=== PATIENT | female | born 1955 | race Caucasian/White ===

== ENCOUNTER 2023-07-19 12:34 | Observation (INO) ==
--- NOTE | 2023-07-19 12:46 | ED Triage Note ---
Date of Service July 19, 2023 Provider in Triage Author: Valentina Eldridge History of Present Illness This patient was briefly evaluated while in triage. An abbreviated physical exam was performed. This patient is a 68-year-old Female who presents to the ED for evaluation of illness x 12 weeks, with flu, tonsillitis, lyme disease. Pt states at [facility] wednesday and states they performed tests. Pt states legs hurt, can't walk, feels dizzy. [facility] said to come here because they don't know what is wrong with her. Physical Exam CONSTITUTIONAL: in no acute pain or distress, resting comfortably SKIN: pink, warm, dry CARDIAC: regular rate and rhythm RESPIRATORY: in no respiratory distress, lungs clear to auscultation ABDOMEN: no TTP MSK: decreased strength throughout NEURO: no neuro deficits, alert and oriented x 3 Initial orders for labs and / or imaging were placed and patient was placed in the waiting area until a bed is available. Please see further documentation for the full ED course.
--- NOTE | 2023-07-19 13:30 | XRay Report ---
SINGLE VIEW CHEST CLINICAL HISTORY: Generalized weakness. FINDINGS: An AP, portable, upright chest radiograph is obtained. No prior studies are available for c omparison at the time of dictation. A 2-lead cardiac pacemaker is in place. The cardiomediastinal mireya houette is top normal for projection noting atherosclerotic calcification of the thoracic aorta. The pulmonary vasculature is nondistended congested. Nonspecific interstitial thickening likely chronic. There is bibasilar scarring/atelectasis. The lungs and pleural spaces are otherwise clear. No pneumot horax is seen. The skeletal structures are osteopenic. The bony thorax is grossly intact. Arthritic c hange is noted in the shoulders. Cholecystectomy clips are seen in the right upper quadrant. IMPRESSION: No active disease in the chest. ACT 112: Negative or not required by law. Electronically signed by: Moy Saldivar M.D. 07/19/2023 1:29 PM
[2023-07-19 13:45] LABS: Basophils # (auto) 0.03 K/uL (0.00-0.20); Basophils % (auto) 0.4 %; Eosinophils # (auto) 0.11 K/uL (0.00-0.50); Eosinophils % (auto) 1.5 %; Hematocrit (blood only) 35.6 % (37.0-47.0); Hemoglobin 11.2 g/dl (12.0-16.0); Immature Granulocytes # (auto) 0.03 K/uL (0.01-0.20); Immature Granulocytes % (auto) 0.4 %; Lymphocytes # (auto) 1.32 K/uL (1.20-3.40); Lymphocytes % (auto) 17.9 %; Mean Corpuscular Hemoglobin 27.7 pg (25.0-34.0); Mean Corpuscular Hgb Conc 31.5 g/dL (32.0-36.0); Mean Corpuscular Volume 88.1 fL (80.0-100.0); Mean Platelet Volume 9.2 fL (9.4-12.4); Monocytes # (auto) 0.29 K/uL (0.11-0.59); Monocytes % (auto) 3.9 %; Neutrophils # (auto) 5.61 K/uL (1.40-6.50); Neutrophils % (auto) 75.9 %; Platelet Count 441 K/uL (130-400); RDW Coefficient of Variation 14.1 % (11.5-14.5); RDW Standard Deviation 45.1 fL (36.4-46.3); Red Blood Count 4.04 M/uL (4.20-5.40); White Blood Count 7.39 K/ul (4.8-10.8)
[2023-07-19] MEDS ORDERED: SODIUM CHLORIDE 0.9% 1,000 ML IV ONE (13:51)
[2023-07-19 13:57] LABS: Alanine Aminotransferase 27 U/L (7-52); Albumin Globulin Ratio 0.7 (0.9-2); Albumin Level 3.1 gm/dl (3.4-5.0); Alkaline Phosphatase 98 U/L (34-104); Anion Gap 10 (3-11); Aspartate Aminotransferase 27 U/L (13-39); BUN Creatinine Ratio 14.4 (10-20); Bilirubin,Total 0.5 mg/dl (0.2-1.0); Blood Urea Nitrogen 18 mg/dl (6-23); Calcium 9.1 mg/dl (8.6-10.3); Carbon Dioxide 24 mmol/L (21-32); Chloride 101 mmol/L (98-107); Est GFR (African American) 51.5 ml/min; Est GFR (Non-African American) 44.5 ml/min; Globulin 4.5 gm/dl (2.5-4.0); Glucose 226 mg/dl (70-99(Fasting)); Potassium 3.8 mmol/L (3.5-5.1); Sodium 135 mmol/L (136-145); Total Protein 7.6 gm/dl (6.0-8.3)
[2023-07-19 14:50] LABS: Lyme Ab IgM w/WB Rflx Negative (Negative)
--- NOTE | 2023-07-19 15:16 | Emergency Department Note ---
Impression & Plan Unable to care for self, (HFpEF) heart failure with preserved ejection fraction, Fibromyalgia, Weakness ED Provider Note CHIEF COMPLAINT: Weakness, bilateral foot pain, right elbow pain HISTORY OF PRESENT ILLNESS: This 68-year-old female patient with past medical history of dysuria, heart failure, paroxysmal atrial fibrillation, fibromyalgia, anxiety, rheumatoid arthritis and coronary artery disease with stent in place presents to the emergency department with complaints of generalized weakness. The patient states she is not able to walk as she has no strength in her legs. She complains of bilateral foot pain. Family member states they have been in and out of emergency departments over the last several weeks to no benefit. She was found to have some sort of swelling or mass on the neck on CAT scan and was advised to have an MRI and follow-up. Patient's daughter states they called PCP after getting frustrated with frequent ER visits to multiple facilities and they were advised to come to the emergency department at [facility]. Patient denies chest pain, shortness of breath, vomiting or diarrhea. She has not had any recent fevers. REVIEW OF SYSTEMS: A review of systems was performed with positives and pertinent negatives listed in the history of present illness. 10 systems were reviewed and are otherwise negative. ALLERGIES: see below MEDICATIONS: see below PMH: see below SOCIAL HISTORY: see below DDx: Infection, dehydration, metabolic abnormality, hypo/hyperglycemia, electrolyte disturbance, anemia, hypoxia, cardiac sources, intracerebral event, toxicologic, neurologic, as well as other pathologies. PHYSICAL EXAM: Vital signs reviewed. General: Somewhat chronically ill-appearing 68-year-old female, no significant distress. HEENT: No scleral icterus, PERRLA, neck supple. Moist mucous membranes, edentulous Cardiovascular: Regular rate and rhythm, no extra sounds. Pulmonary: Clear to auscultation bilaterally, normal work of breathing. Abdomen: Soft, nontender, nondistended, positive bowel sounds. Musculoskeletal: Atraumatic, minimal peripheral edema. Peripheral joint deformities consistent with arthritis. Neurologic: Patient awake alert and oriented x 3, speech is clear Skin: Warm, dry, no rash EMERGENCY DEPARTMENT COURSE/MDM: This patient was evaluated and appeared to be in no significant distress. IV access was obtained and laboratory work was drawn. Patient was placed on the barrel burner and noted to be in normal sinus rhythm. Records were requested from the outside hospital including ED visits, laboratory work and imaging studies at [facility]. Laboratory work was obtained and is fairly reassuring. Patient's UA is contaminated and will be sent for culture. Does not seem likely that the patient has UTI based on the results. RSV, influenza and COVID swabs are negative. Given that the patient has not been out of bed and is difficult for family to care for at home, consultation with the case specialist was placed in hopes of transitioning the patient to inpatient rehab from the emergency department. According to the case specialist, the patient's insurance would dictate PT/OT evaluations prior to transfer. Case was discussed with the hospitalist service who is agreed to evaluate the patient for admission and further management. MONITORING: An order for cardiac monitoring was placed and the patient is noted to be in a normal sinus rhythm at 84 beats per minute. RADIOLOGY: Chest x-ray to my interpretation reveals no evidence of focal lung consolidation or failure. Otherwise defer to radiology's over read. Right elbow x-ray to my interpretation reveals no acute fracture or dislocation. EKG: To my interpretation reveals a normal sinus rhythm at [address] segments. No PVC, no PAC. QTc of 440, no previous for comparison. Admission DISPOSITION: Admission Past Med/Surg History Medical History Anxiety Fibromyalgia Paroxysmal A-fib (HFpEF) heart failure with preserved ejection fraction Rheumatoid arthritis Pacemaker Surgical History H/O: hysterectomy H/O heart artery stent Hx of cholecystectomy History of tubal ligation Family History Mother Cancer kidney and stomach Sister Diabetes Social History Smoking Status: Former smoker Tobacco Cessation Education Requested by Patient: No Hx Alcohol Use: No Hx Substance Use: No Preferred Language: Swedish Communication Ability: Effective Sanitary Plumber Required: No Beliefs That Will Affect Care: None and Shinto Shinto Beliefs: Sikhism marital status: Current Living Situation: Spouse and Family Feels Safe at Home: Yes Safety Concerns: Feels Safe At This Time Assistive Devices: None Assistive Devices Comment: Cane/Walker Allergies Allergies Allergy/AdvReac Type Severity Reaction Status Date / Time amoxicillin Allergy Severe Anaphylaxis Verified 07/19/23 16:40 morphine Allergy Intermediate ITCHY ALL Verified 07/19/23 16:40 OVER Home Meds Home Medications Medication Instructions Recorded Confirmed apixaban 5 mg tablet (Eliquis) 5 mg PO BID 07/19/23 07/19/23 atorvastatin 40 mg tablet 40 mg PO DAILY 07/19/23 07/19/23 diltiazem HCl 240 mg capsule,24 240 mg PO QAM 07/19/23 07/19/23 hr,extended release furosemide 20 mg tablet 20 mg PO DAILY 07/19/23 07/19/23 loratadine 10 mg tablet (Claritin) 10 mg PO DAILY 07/19/23 07/19/23 lorazepam 0.5 mg tablet 0.5 mg PO BID PRN Anxiety 07/19/23 07/19/23 metoprolol succinate 100 mg 100 mg PO HS 07/19/23 07/19/23 tablet,extended release 24 hr montelukast 10 mg tablet 10 mg PO DAILY 07/19/23 07/19/23 (Singulair) nitroglycerin 0.4 mg sublingual 0.4 mg sublingual DIRECTED PRN 07/19/23 07/19/23 tablet (Nitrostat) Chest Pain oxycodone-acetaminophen 5 mg-325 1 tab PO BID PRN Pain 07/19/23 07/19/23 mg tablet pantoprazole 40 mg tablet,delayed 40 mg PO BID 07/19/23 07/19/23 release potassium chloride 20 mEq 20 meq PO DAILY 07/19/23 07/19/23 tablet,extended release(part/cryst) Previous Rx's Medication Instructions Recorded prednisone 10 mg tablet See Taper PO DAILY #36 tabs 07/21/23 prednisone 5 mg tablet 5 mg PO DAILY #4 tabs 07/21/23 Results & Data (ED) Vital Signs Vital Signs - 24 hr 07/19/23 12:44 07/19/23 14:57 07/19/23 14:57 Temperature 36.5 C Temperature Source Temporal Artery Scan Pulse Rate 83 83 Pulse Rate [Right Finger] 83 Pulse Rhythm Regular Respiratory Rate 20 20 20 Respiratory Effort / Characteristics Non-Labored Spontaneous Respiratory Depth Normal Blood Pressure 128/84 Blood Pressure [Right Arm] 115/67 Blood Pressure Mean 98 Blood Pressure Mean [Right Arm] 83 Pulse Oximetry 100 99 100 Oxygen Delivery Method Room Air Room Air Sepsis Recent Fever Within 48 Hours No Sepsis New/Unexplained Change in Mental Status No Sepsis Action Taken by Nursing No Action Required 07/19/23 14:57 Temperature Temperature Source Pulse Rate 84 Pulse Rate [Right Finger] Pulse Rhythm Respiratory Rate Respiratory Effort / Characteristics Respiratory Depth Blood Pressure Blood Pressure [Right Arm] Blood Pressure Mean Blood Pressure Mean [Right Arm] Pulse Oximetry Oxygen Delivery Method Sepsis Recent Fever Within 48 Hours Sepsis New/Unexplained Change in Mental Status Sepsis Action Taken by Penitentiary Medications Current Medication List: was personally reviewed by me Laboratory Data Attestation: I reviewed the patient's lab results. 07/21/23 07:11 07/21/23 07:11 Lab Results 07/19/23 07/19/23 07/19/23 Range/Units 13:05 15:05 15:41 WBC 7.39 (4.8-10.8) K/ul RBC 4.04 L (4.20-5.40) M/uL Hgb 11.2 L (12.0-16.0) g/dl Hct 35.6 L (37.0-47.0) % MCV 88.1 (80.0-100.0) fL MCH 27.7 (25.0-34.0) pg MCHC 31.5 L (32.0-36.0) g/dL RDW Std Deviation 45.1 (36.4-46.3) fL RDW Coeff of Keon 14.1 (11.5-14.5) % Plt Count 441 H (130-400) K/uL MPV 9.2 L (9.4-12.4) fL Immature Gran % (Auto) 0.4 % Neut % (Auto) 75.9 % Lymph % (Auto) 17.9 % Ray % (Auto) 3.9 % Eos % (Auto) 1.5 % Baso % (Auto) 0.4 % Neut # (Auto) 5.61 (1.40-6.50) K/uL Lymph # (Auto) 1.32 (1.20-3.40) K/uL Ray # (Auto) 0.29 (0.11-0.59) K/uL Eos # (Auto) 0.11 (0.00-0.50) K/uL Baso # (Auto) 0.03 (0.00-0.20) K/uL Immature Gran # (Auto) 0.03 (0.01-0.20) K/uL ESR 105 H (0-30) mm/hr Sodium 135 L (136-145) mmol/L Potassium 3.8 (3.5-5.1) mmol/L Chloride 101 (98-107) mmol/L Carbon Dioxide 24 (21-32) mmol/L Anion Gap 10 (3-11) BUN 18 (6-23) mg/dl Creatinine 1.25 H (0.6-1.2) mg/dl Est Cr Clr Drug Dosing Not Reportable Est GFR ( Amer) 51.5 ml/min Est GFR (Non-Af Amer) 44.5 ml/min BUN/Creatinine Ratio 14.4 (10-20) Glucose 226 H (70-99(Fasting)) mg/dl Lactate 2.9 H* 1.6 (0.4-2.0) mmol/L Calcium 9.1 (8.6-10.3) mg/dl Magnesium 2.0 (1.7-2.4) mg/dl Total Bilirubin 0.5 (0.2-1.0) mg/dl AST 27 (13-39) U/L ALT 27 (7-52) U/L Alkaline Phosphatase 98 (34-104) U/L Total Creatine Kinase 14 L (26-192) U/L Troponin I High Sens 12.2 (0-14) pg/ml C-Reactive Protein 13.73 H (0-0.5) mg/dl Total Protein 7.6 (6.0-8.3) gm/dl Albumin 3.1 L (3.4-5.0) gm/dl Globulin 4.5 H (2.5-4.0) gm/dl Albumin/Globulin Ratio 0.7 L (0.9-2) Lyme Disease IgG Ab Negative (Negative) Lyme Disease IgM Ab Negative (Negative) SARS-CoV-2 (PCR) NEGATIVE (Negative) Influenza Type A (PCR) Negative (Neg) Influenza Type B (PCR) Negative (Neg) RSV (RT-PCR) Negative (Neg) Administered Medications Discontinued Medications Apixaban (Apixaban 5 Mg Tablet) 5 mg PO BID YURI Stop: 08/18/23 20:59 Last Admin: 07/21/23 09:32 Dose: 5 mg Documented By: Admin: 07/20/23 21:00 Dose: 5 mg Documented By: LEIGH ANN Admin: 07/20/23 08:59 Dose: 5 mg Documented By: Admin: 07/19/23 22:27 Dose: 5 mg Documented By: CRUZ Atorvastatin Calcium (Atorvastatin 40 Mg Tab) 40 mg PO DAILY [facility] Stop: 08/19/23 08:59 Last Admin: 07/21/23 09:32 Dose: 40 mg Documented By: Admin: 07/20/23 08:59 Dose: 40 mg Documented By: KENN Diclofenac Sodium (Diclofenac Sod 1% Gel 100 Gm Tube) 2 gm EXT Q6 YURI; Protocol Stop: 08/20/23 02:59 Last Admin: 07/21/23 12:38 Dose: 2 gm Documented By: Admin: 07/21/23 05:24 Dose: Not Given Documented By: LEIGH ANN Diltiazem HCl (Diltiazem Hcl 240 Mg Capcr) 240 mg PO QAM YURI Stop: 08/19/23 08:59 Last Admin: 07/21/23 09:32 Dose: 240 mg Documented By: Admin: 07/20/23 08:59 Dose: 240 mg Documented By: KENN Furosemide (Furosemide 20 Mg Tab) 20 mg PO DAILY [facility] Stop: 08/19/23 08:59 Last Admin: 07/21/23 09:32 Dose: 20 mg Documented By: Admin: 07/20/23 08:59 Dose: 20 mg Documented By: KENN Gadobutrol (Gadobutrol 65ml Vial) 6.5 ml IV ONCE ONE Stop: 07/20/23 13:50 Last Admin: 07/20/23 13:39 Dose: 6.5 ml Documented By: BETZAIDA Sodium Chloride (Nss) 1,000 mls @ 999 mls/hr IV .Q1H1M ONE Stop: 07/19/23 14:51 Last Infusion: 07/19/23 17:54 Dose: Infused Documented By: Admin: 07/19/23 14:56 Dose: 999 mls/hr Documented By: HARMONY Ceftriaxone Sodium 2,000 mg/ (Dextrose) 50 mls @ 100 mls/hr IV Q24H [facility]; Protocol Stop: 07/24/23 18:59 Last Infusion: 07/20/23 19:00 Dose: Infused Documented By: Admin: 07/20/23 18:14 Dose: 100 mls/hr Documented By: Infusion: 07/19/23 20:16 Dose: Infused Documented By: Admin: 07/19/23 18:51 Dose: 100 mls/hr Documented By: DULCE Methylprednisolone 40 mg/ (Syringe) 0.64 mls @ 1.5 mls/min IV NOW STA Stop: 07/20/23 19:22 Last Admin: 07/20/23 21:05 Dose: 1.5 mls/min Documented By: LEIGH ANN Insulin Aspart (Insulin Aspart Per Unit Charge) 0 units SC ACHS YURI Stop: 08/18/23 20:59 Last Admin: 07/19/23 22:31 Dose: Not Given Documented By: CRUZ Co-signed By: SRL Insulin Glargine (Lantus Per Unit Charge) 8 units SQ BID YURI Stop: 08/18/23 20:59 Last Admin: 07/19/23 23:01 Dose: Not Given Documented By: CRUZ Loratadine (Loratadine 10 Mg Tab) 10 mg PO DAILY YURI Stop: 08/19/23 08:59 Last Admin: 07/21/23 09:32 Dose: 10 mg Documented By: Admin: 07/20/23 08:59 Dose: 10 mg Documented By: KENN Lorazepam (Lorazepam 0.5 Mg Tab) 0.5 mg PO BID PRN PRN Reason: Anxiety Stop: 08/18/23 18:43 Last Admin: 07/20/23 03:53 Dose: 0.5 mg Documented By: FROY Metoprolol Succinate (Metoprolol Succ 50mg Ext Rel Tab) 100 mg PO HS [facility] Stop: 08/18/23 20:59 Last Admin: 07/20/23 21:00 Dose: 100 mg Documented By: LEIGH ANN Admin: 07/19/23 22:28 Dose: 100 mg Documented By: CRUZ Montelukast Sodium (Montelukast Sodium 10 Mg Tablet) 10 mg PO DAILY YURI Stop: 08/19/23 08:59 Last Admin: 07/21/23 09:32 Dose: 10 mg Documented By: Admin: 07/20/23 08:59 Dose: 10 mg Documented By: KENN Oxycodone HCl (Oxycodone Hcl Ir 5 Mg Tab (Immediate Release)) 5 mg PO BID PRN PRN Reason: Pain Stop: 08/02/23 18:43 Last Admin: 07/20/23 20:59 Dose: 5 mg Documented By: LEIGH ANN Pantoprazole Sodium (Pantoprazole 40 Mg Tab) 40 mg PO BID YURI Stop: 08/18/23 20:59 Last Admin: 07/21/23 09:33 Dose: 40 mg Documented By: Admin: 07/20/23 21:01 Dose: 40 mg Documented By: LEIGH ANN Admin: 07/20/23 08:59 Dose: 40 mg Documented By: Admin: 07/19/23 22:28 Dose: 40 mg Documented By: CRUZ Potassium Chloride (Potassium Chloride Crtab 20 Meq Tabcr) 20 meq PO DAILY YURI Stop: 08/19/23 08:59 Last Admin: 07/21/23 09:33 Dose: 20 meq Documented By: Admin: 07/20/23 08:59 Dose: 20 meq Documented By: KENN Prednisone (Prednisone 20 Mg Tab) 40 mg PO NOW STA Stop: 07/21/23 13:55 Last Admin: 07/21/23 14:22 Dose: 40 mg Documented By: LELA Imaging Data Radiologist's Impression: Chest X-Ray 07/19/23 12:47 SINGLE VIEW CHEST CLINICAL HISTORY: Generalized weakness. FINDINGS: An AP, portable, upright chest radiograph is obtained. No prior studies are available for comparison at the time of dictation. A 2-lead cardiac pacemaker is in place. The cardiomediastinal silhouette is top normal for projection noting atherosclerotic calcification of the thoracic aorta. The pulmonary vasculature is nondistended congested. Nonspecific interstitial thickening likely chronic. There is bibasilar scarring/atelectasis. The lungs and pleural spaces are otherwise clear. No pneumothorax is seen. The skeletal structures are osteopenic. The bony thorax is grossly intact. Arthritic change is noted in the shoulders. Cholecystectomy clips are seen in the right upper quadrant. IMPRESSION: No active disease in the chest. ACT 112: Negative or not required by law. Electronically signed by: Moy Saldivar M.D. 07/19/2023 1:29 PM Discharge Plan Visit Data Chief Complaint: Illness Stated Complaint: DEHYDRATION, EDEMA TO HANDS/LEGS, SICK/LYMDISEASE ED Provider: Krista Awan Discharge Problem: Unable to care for self, (HFpEF) heart failure with preserved ejection fraction, Fibromyalgia, Weakness Patient Disposition: Admitted As Inpatient Discharge Instructions Interventions: ED Discharge Assessment Last Done: 07/20/23 14:55
[2023-07-19 15:26] LABS: Troponin I High Sensitivity 12.2 pg/ml (0-14)
--- NOTE | 2023-07-19 15:39 | XRay Report ---
XR elbow RT min 3V routine CLINICAL HISTORY: Right elbow pain. COMPARISON: None FINDINGS: Alignment of the right elbow is anatomic. No acute fracture is identified. There is no igor dence for a joint effusion. Tiny ossicle along the lateral condyle is chronic. There is ulnotrochlear articulation osteophytosis. IMPRESSION: 1. No fractures within the right elbow. No evidence for a right elbow joint effusion. 2. Mild ulnotrochlear osteoarthritis. ACT 112: Negative or not required by law. Electronically signed by: Gume Baker M.D. 07/19/2023 3:38 PM
--- NOTE | 2023-07-19 16:04 | History & Physical Report ---
Date of Service July 19, 2023 Assessment & Plan (1) Weakness: Plan: Polyarthralgia, myalgia,weakness, ambulatory dysfunction Recently worsened since flu and tonsillitis 10 weeks ago. Has not improved on a 3-day course of steroids prescribed by [facility] several ago weeks ago Has a history of rheumatoid arthritis and joints tend to get less painful with use consistent with this. Multimodal pain control ordered, started to defer pending completion of additional workup CRP, ESR, CK ordered; no baseline available for comparison at time of admission NSAIDs deferred due to borderline elevated creatinine. Tylenol, Voltaren ordered. Home oxycodone continued, avoid dose escalation of narcotics. Meloxicam home dose temporarily held held -Lyme serology pending - Also endorses dysuria. UA contaminated versus infected appearing, given symptoms we will treat with Rocephin. PT/OT (2) Neck pain: Plan: Left neck pain Patient reports she has had swelling and pain at her left neck. She feels that she has also had some difficulty swallowing, although did eat lunch today. Notes that she has had 15 pounds of weight gain over 1 month, some of that she attributes to diet and not being very hungry, in addition to having some trouble swallowing. Denies aspiration events -Left neck with small area of fimness, minimall swelling, and TTP. Marked with surgical pen. Trachea midline, no wheezing/stridor or signs o [place] compromise on admit CT soft tissue neck with contrast reviewed from [place] performed 07/16. She reports that this was present then and has not changed since then. This shows prominence of her right lateral oropharyngeal wall, nonspecific cervical lymphadenopathy, normal appearance of the infrahyoid deep neck spaces, normal appearance of the larynx/supraglottic space/glottic space/infraglottic space, normal appearance of the sublingual submandibular and parotid salivary glands, and unremarkable oropharynx. The oropharyngeal wall thickening is opposite to her actual pain and erythema. She was recommended for follow-up MRI to rule out malignancy [place]. Images requested to push for in-house review Soft tissue MRI of the neck with contrast ordered. This cannot be performed until 07/20, pacemaker will need to be turned off for this. Pacemaker ID card is copied into H&P PE section. .No leukocytosis, no signs of ongoing bacterial infection. Will trend fever curve (3) Dysuria: Plan: Rocephin. Pt does not appear septic continued, no leukocytosis and hemodynamically stable. Did have an elevated lactate which rapidly normalized w/ both UTI and poor p.o. intake however this has normalized following initial crystalloid resuscitation. (4) (HFpEF) heart failure with preserved ejection fraction: Plan: Hx CAD with history of PCI Aspirin/Eliquis/statin/bb/ccb continued - no chest pain/chest pressure/syncope With history of diastolic failure reportedly normal EF, pending echo for review from [place] Near euvolemic on admission assessment, not hypoxic, lungs are clear are clear Lasix 20 daily continued (5) Paroxysmal A-fib: Plan: A-fib, paroxysmal, anticoagulated - Diltiazem to 40 mg daily Continue metoprolol Continue Eliquis (6) Fibromyalgia: Plan: Fibromyalgia Home SSRI, pain control continued (7) Anxiety: Plan: Anxiety Home lorazepam continued Plan Patient prophylaxis: Anticoagulated Disposition: Medical/surgical CODE STATUS: DNR/DNI Diet: Heart healthy, DM2 History of Present Illness Primary Care Provider: Gerald Gerald Arguelles reports she had Flu A and Flu B 10 weeks ago and has been progressively weaker since then. Thinks she got steroids for 3 days and family doctor gave her an antibiotic x2 course for failure to improve and ?superimposed tonsillitis/pharyngitis, did not take these initially for several weeks. After she started tonsillitis resolved weeks ago, but still feels very tired almost all the time these sense No wheezing, no shortness of breath Legs have been sore since having the floor. 'Legs hurt so bad I just can't walk'. Hands also ache. Feels more tremulous lately, cold lately.. Notes her hands and wrist normally ache due to rheumatoid arthritis but feels worse than normal .. She does note they loosen up a little bit with effort, but they have been more painful and are now limiting her ability to function. Denies fevers, no chills/night sweats but does get intermittently during the day. Wednesday went to [facility] to have the swelling in her legs and arms looked at, got lasix, and was sent home. Lasix improved the swelling, and could walk yesterday but swelling returned today and hurt to walk again so she returned for placement, evaluation of her legs, neck, and placement/PT. Has a history of rheumatoid arthritis and fibromyalgia. She notes that her legs feel sore but are not tender to the touch, although her hips/wrists tend to be sore bilaterally. Her pain is worse when trying to stand and she feels this in both the thighs and bilateral lower extremities. Has a history of a pacemaker. History of [place] and PCI x2 stents. Stents were performed at [facility]. Reports [place] said she had heart failure and edema, pt is not aware of if this is true. She was told she had diastolic CHF. Patient reports she had a CT with contrast of her neck at [place], and was referred to have an outpatient MRI for potential cancer. She has not had follow-up for this. She continues to have left neck tenderness and pain with redness and swelling CT-Neck pending, pt reports she is pending an outpatient MRI but has not followed up for this. Pacemaker has to be turned off. Pacemaker was placed at [facility] [place]. Denies chest pain, chest pressure. No syncope or presyncope. Record REview: [facility] Notes/Labs/Imaging Reviewed from 07/16/23 Assessment: Patient presented with tonsillitis had not take meds for 8-10 weeks and continue to have a sore throat. Has a history of A-fib on Eliquis and diltiazem, hypertension, RA, hyperlipidemia, chronic pain, fibromyalgia Had difficulty swallowing intermittently with 15 pounds weight loss in the preceding 4 to 6 weeks Leukocytosis, elevated proBNP without pulmonary edema. D-dimer is elevated patient obtained a CTA of the chest. This showed no evidence of PE, mild mural thickening of the esophagus with bilateral upper groundglass nodules which patient reports are chronic and not new. CT of the neck showed prominence of the right lateral oropharyngeal wall. Endoscopy/outpatient MRI follow-up with PCP was pending. Patient had not been compliant with Lasix at that time and was discharged to follow-up with PCP and with Lasix Patient reports she is compliant with her Eliquis [facility] internal medicine 07/16/[address] soft tissue neck with contrast: Prominence of right lateral oropharyngeal wall, subcentimeters nonspecific cervical lymph nodes. MRI with contrast recommended to eval for malignancy Plan [place] internal medicine note reviewed Medical history includes: Osteoarthritis of the right shoulder, supraspinatus tear, influenza, pharyngitis, bronchitis, excessive daytime sleepiness, chronic headaches, rheumatoid arthritis, fibromyalgia, GERD, A-fib paroxysmal on anticoagulation, cardiac pacemaker status, hyperlipidemia Medications: Lorazepam 0.5 mg daily as needed, oxycodoneacetaminophen 5-325 mg 1 tablet twice a day as needed for pain, Protonix 40 daily, montelukast 10 mg daily, Zofran 3 times daily as needed, sertraline 50 mg daily, Zyrtec 10 mg daily, diltiazem to 40 mg extended release daily, famotidine 40 mg at night, piroxicam 10 mg daily, metoprolol succinate 100 mg every night, aspirin 81 mg daily, atorvastatin 40 mg daily, Eliquis twice daily, nitroglycerin as needed. Surgical history: Cardiac cath 01/2016, cholecystectomy, hysterectomy, tubal ligation, less breast lumpectomy Family history: Diabetes in daughter, sister. Breast cancer in sister. Heart disease in father who is at age 60. Pancreatic cancer and adenoid hypertrophy and mother Social: Former smoker, quit 2014 after approximately [id number] history Allergies Allergy/AdvReac Type Severity Reaction Status Date / Time amoxicillin Allergy Severe Anaphylaxis Verified 07/19/23 16:40 morphine Allergy Intermediate ITCHY ALL Verified 07/19/23 16:40 OVER Home Medications Medication Instructions Recorded Confirmed Type apixaban 5 mg tablet (Eliquis) 5 mg PO BID 07/19/23 07/19/23 History atorvastatin 40 mg tablet 40 mg PO DAILY 07/19/23 07/19/23 History diltiazem HCl 240 mg capsule,24 240 mg PO QAM 07/19/23 07/19/23 History hr,extended release furosemide 20 mg tablet 20 mg PO DAILY 07/19/23 07/19/23 History loratadine 10 mg tablet (Claritin) 10 mg PO DAILY 07/19/23 07/19/23 History lorazepam 0.5 mg tablet 0.5 mg PO BID PRN Anxiety 07/19/23 07/19/23 History metoprolol succinate 100 mg 100 mg PO HS 07/19/23 07/19/23 History tablet,extended release 24 hr montelukast 10 mg tablet 10 mg PO DAILY 07/19/23 07/19/23 History (Singulair) nitroglycerin 0.4 mg sublingual 0.4 mg sublingual DIRECTED PRN 07/19/23 07/19/23 History tablet (Nitrostat) Chest Pain oxycodone-acetaminophen 5 mg-325 1 tab PO BID PRN Pain 07/19/23 07/19/23 History mg tablet pantoprazole 40 mg tablet,delayed 40 mg PO BID 07/19/23 07/19/23 History release potassium chloride 20 mEq 20 meq PO DAILY 07/19/23 07/19/23 History tablet,extended release(part/cryst) Past Med/Surg History Medical History (Updated 07/19/23 @ 16:56 by Denis Gutierrez MD) Anxiety Fibromyalgia Paroxysmal A-fib (HFpEF) heart failure with preserved ejection fraction Rheumatoid arthritis Pacemaker Surgical History H/O: hysterectomy H/O heart artery stent Hx of cholecystectomy History of tubal ligation Family History Mother Cancer kidney and stomach Sister Diabetes Social History Smoking Status: Never smoker Hx Alcohol Use: No Preferred Language: Mexican marital status: Feels Safe at Home: Yes Physical Exam 2 Physical Exam: General: A&Ox3. NAD. Cooperative. HEENT: Atraumatic, normocephalic. 2 left neck with area of firmness and tenderness but no erythema/warmth. Circled with surgical pen. No tracheal deviation, uvula midline, no stridor Pulm: CTAB A&P. -wheezes, -rales, -rhonchi. Symmetrical chest rise. No increased work of breathing. No respiratory distress. Cardiac: RRR, -mrg. Radial pulses intact and symmetrical. Abdominal: Nontender, nondistended, soft. BS present. Extremities: Warm, dry. No pitting edema of the lower extremities. Wrist bilaterally, hip bilaterally, ankles bilaterally mildly tender to palpation and on initial active strength movement this improves somewhat on continued strength testing. Sensation intact in hands and feet without Results & Data Results & Data Vital Signs (Past 12 Hours) Vital Signs Temp Pulse Pulse Resp BP BP Pulse Ox 07/19/23 14:57 84 07/19/23 14:57 83 20 115/67 100 07/19/23 14:57 83 20 99 07/19/23 12:44 36.5 C 83 20 128/84 100 O2 Del Method 07/19/23 14:57 07/19/23 14:57 Room Air 07/19/23 14:57 Room Air 07/19/23 12:44 PG Care Time/CCT Total # of Minutes Spent Total Time Spent with Patient: Total time spent is greater than 50% in coordination of care (as documented) at patient's floor/unit and/or counseling patient: Coding Level of Care Code 15363 INT INP/OBS CARE 3/75MIN Diagnoses Weakness R53.1 Neck pain M54.2 Dysuria R30.0 (HFpEF) heart failure with preserved ejection fraction I50.30 Paroxysmal A-fib I48.0 Fibromyalgia M79.7 Anxiety F41.9
[2023-07-19 16:21] LABS: Appearance Urine Cloudy (Clear); Bacteria Urine Automated Negative (Negative); Bilirubin Urine 1+ (Negative); Blood Urine Negative (Negative); Color Urine Orange; Epithelial Cell Urine Auto >30 /lpf (0-5); Glucose Urine UA Negative (Negative); Ketones Urine Trace (Negative); Leukocyte Esterase Urine Trace (Negative); Nitrite Urine Positive (Negative); Protein Urine Trace (Negative); Specific Gravity Urine 1.034 (1.000-1.030); Urobilinogen Urine Negative (Negative); pH Urine 5.5 (4.5-7.5)
[2023-07-19 16:36] LABS: Cast Urine Automated >30 /lpf (0-5)
[2023-07-19 16:36] LABS: Influenza A virus by PCR Negative (Neg); Influenza B virus by PCR Negative (Neg); RSV by PCR Negative (Neg); SARS CoV2 RNA(COVID-19) Ceph NEGATIVE (Negative)
[2023-07-19 16:37] LABS: Mucus Urine Present (None Prsent)
[2023-07-19 16:46] LABS: Lyme Ab IgG w/WB Rflx Negative (Negative)
[2023-07-19] MEDS ORDERED: GLUCOSE 10 TAB/TUBE PO PRN (16:53)
[2023-07-19] MEDS ORDERED: CARBOHYDRATES FOR HYPOGLYCEMIA PO PRN (16:53)
[2023-07-19] MEDS ORDERED: GLUCOSE 40% GEL 15 GM TUBE PO PRN (16:53)
[2023-07-19] MEDS ORDERED: DEXTROSE 50% 50 ML SYRINGE IV PRN (16:53)
[2023-07-19] MEDS ORDERED: GLUCAGON FOR INJ 1 MG VIAL SQ PRN (16:53)
[2023-07-19 17:21] LABS: C Reactive Protein 13.73 mg/dl (0-0.5); Creatine Kinase 14 U/L (26-192)
[2023-07-19] MEDS ORDERED: LORazepam 0.5 MG TAB PO PRN (18:44)
[2023-07-19] MEDS ORDERED: ACETAMINOPHEN 325 MG TAB PO PRN (18:44)
[2023-07-19] MEDS ORDERED: POLYETHYLENE (MIRALAX) 17 GM PACK PO PRN (18:44)
[2023-07-19] MEDS ORDERED: oxyCODONE HCL IR 5 MG TAB (IMMEDIATE RELEASE) PO PRN (18:44)
[2023-07-19] MEDS ORDERED: NITROGLYCERIN SL 0.4 MG/TAB TAB SL PRN (18:44)
[2023-07-19] MEDS: cefTRIAXone SODIUM 2,000 MG in DEXTROSE 5 % MINI-B 50 ML IV SCH (18:51)
--- NOTE | 2023-07-19 19:14 | Electrocardiogram Report ---
Test Reason : Blood Pressure : / mmHG Vent. Rate : 079 BPM Atrial Rate : 079 BPM P-R Int : 142 ms QRS Dur : 088 ms QT Int : 384 ms P-R-T Axes : 056 030 054 degrees QTc Int : 440 ms Normal sinus rhythm Cannot rule out Anterior infarct , age undetermined Abnormal ECG No previous ECGs available Confirmed by Jhonatan Ferrera ([id number]) on 07/19/2023 7:14:20 PM Referred By: Confirmed By:Jhonatan Ferrera
[2023-07-19] MEDS ORDERED: INSULIN ASPART PER UNIT CHARGE SC SCH (21:00)
[2023-07-19] MEDS ORDERED: LANTUS PER UNIT CHARGE SQ SCH (21:00)
[2023-07-19] MEDS: APIXABAN 5 MG TABLET PO SCH (22:27)
[2023-07-19] MEDS: PANTOprazole 40 MG TAB PO SCH (22:28)
[2023-07-19] MEDS: METOPROLOL SUCC 50MG EXT REL TAB PO SCH (22:28)
[2023-07-20 04:51] LABS: Basophils # (auto) 0.02 K/uL (0.00-0.20); Basophils % (auto) 0.3 %; Eosinophils # (auto) 0.14 K/uL (0.00-0.50); Eosinophils % (auto) 2.3 %; Hemoglobin 9.8 g/dl (12.0-16.0); Immature Granulocytes # (auto) 0.01 K/uL (0.01-0.20); Immature Granulocytes % (auto) 0.2 %; Lymphocytes # (auto) 1.51 K/uL (1.20-3.40); Mean Corpuscular Hemoglobin 27.5 pg (25.0-34.0); Mean Corpuscular Hgb Conc 31.6 g/dL (32.0-36.0); Mean Corpuscular Volume 87.1 fL (80.0-100.0); Mean Platelet Volume 8.9 fL (9.4-12.4); Monocytes # (auto) 0.56 K/uL (0.11-0.59); Monocytes % (auto) 9.3 %; Neutrophils % (auto) 62.9 %; Platelet Count 356 K/uL (130-400); RDW Coefficient of Variation 13.8 % (11.5-14.5); RDW Standard Deviation 44.1 fL (36.4-46.3); Red Blood Count 3.56 M/uL (4.20-5.40); White Blood Count 6.04 K/ul (4.8-10.8)
[2023-07-20 05:06] LABS: Calcium 8.8 mg/dl (8.6-10.3); Creatinine Clr Calc Pharmacy 62.3 ml/min; Est GFR (African American) 87.1 ml/min; Est GFR (Non-African American) 75.2 ml/min
[2023-07-20 07:52] LABS: Estimated Average Glucose 117 mg/dl; Hemoglobin A1C 5.7 % (4.5-5.6)
[2023-07-20] MEDS: FUROSEMIDE 20 MG TAB PO SCH (08:59)
[2023-07-20] MEDS: POTASSIUM CHLORIDE CRTAB 20 MEQ TABCR PO SCH (08:59)
[2023-07-20] MEDS: MONTELUKAST SODIUM 10 MG TABLET PO SCH (08:59)
[2023-07-20] MEDS: PANTOprazole 40 MG TAB PO SCH ×2 (08:59→21:01)
[2023-07-20] MEDS: LORATADINE 10 MG TAB PO SCH (08:59)
[2023-07-20] MEDS: dilTIAZem HCL 240 MG CAPCR PO SCH (08:59)
[2023-07-20] MEDS: ATORVASTATIN 40 MG TAB PO SCH (08:59)
[2023-07-20] MEDS: APIXABAN 5 MG TABLET PO SCH ×2 (08:59→21:00)
[2023-07-20] MEDS ORDERED: GADOBUTROL 65ML VIAL IV ONE (13:49)
--- NOTE | 2023-07-20 14:57 | Magnetic Resonance Report ---
MRI OF THE NECK WITH AND WITHOUT CONTRAST CLINICAL HISTORY: Pharyngeal thickening, weight loss. Palpable lump Evaluate for malignancy. COMPARISON STUDY: No previous studies for comparison. TECHNIQUE: Utilizing a 1.5 Juliana magnet and dedicated coil, multiplanar, multiecho imaging of the [facility] k was performed pre and postcontrast administration. Intravenous injection of 6.5 cc of Gadavist was uneventful. FINDINGS: Visualized portions of the intracranial contents are unremarkable. There is no evidence for sinusitis. No significant mastoid fluid is present. No foci of suspicious marrow replacement are pre sent within the cervical spine. The parotid and submandibular glands are unremarkable. The epiglottis is normal. No pathologically enlarged cervical lymph nodes are present. There is a prominent left le francia 2 node on image 22 of 31. This measures 0.8 x 0.7 cm. This is probably benign. A marker was place d in the skin at site of palpable lump. No corresponding mass or enlarged lymph node is present. No f luid collection within the neck is present. There is no prevertebral edema. No mucosal lesion is iden tified although exam is mildly compromised by motion artifact. IMPRESSION: 1. No significant abnormality within the neck by MRI. 2. Prominent left level 2 lymph node which is likely benign. A follow-up CT in 6 months to ensure sta bility is recommended. No pathologically enlarged lymph nodes. 3. No abnormality to correspond to the palpable lump within the left neck. 4. No mucosal lesion identified by MRI although exam mildly compromised by motion artifact. ACT 112: Negative or not required by law. Electronically signed by: Gume Baker M.D. 07/20/2023 2:55 PM
--- NOTE | 2023-07-20 16:01 | Hospitalist Progress Note ---
Date of Service July 20, 2023 Assessment & Plan (1) Weakness: (2) Dysuria: (3) Neck pain: (4) Urinary hesitancy: (5) Gross hematuria: (6) Rheumatoid arthritis: (7) Paroxysmal A-fib: (8) Presence of stent in coronary artery in patient with coronary artery disease: (9) (HFpEF) heart failure with preserved ejection fraction: (10) Fibromyalgia: (11) Anxiety: Plan Kindra is a 68 y/o w/ a h/o RA, Fibromyalgia, Paroxysmal AF (s/p pacemaker raquel cement), HFpEF, Urinary Hesitancy, Gross Hematuria, Dysuria a recent h/o flu w/ tonsillitis (11 weeks ago), 1 year h/o L-sided neck mass, who presents for generalized weakness, myalgias/polyarthralgias w/ associated ambulatory dysfunction following her illness 11 weeks ago. Weakness * known h/o RA * Polyarthralgia, myalgia, ambulatory dysfunction * Worse in the evening * ESR 105, CRP 13.73 * Lyme serology (-) * Has worsened since flu 11 wks ago * Did not improve on 3-day course of steroids at [facility] several weeks ago * H/o RA that joint usage tends to ameliorate * NSAIDs deferred due to elevated creatinine * Continue on Tylenol & Voltaren PRN * Continue on home dose oxycodone * Consult PT/OT * Refer to rheumatology for evaluation (pending family med referral) UTI Sx * no bacteria present in her contaminated-appearing UA * No fever, leukocytosis, no Sxs of acute infection * Continue IV Ceftriaxone 2,000mg IV due to current Sx to cover possible infection Neck Pain * No leukocytosis, fever, or other Sxs of acute infection * Recent h/o difficulty swallowing * Upper GI balloon dilation performed 3-4 months ago * No wheezing or stridor * MRI shows no likely malignant process Rheumatoid Arthritis * known h/o RA * significant MCP/MTP swelling this hospitalization consistent w/ RA flare * has been prescribed Montelukast, Oxycodone (5 years) * refer to Rheumatology * NSAIDs deferred due to elevated creatinine * Continue on Tylenol & Voltaren PRN Paroxysmal Afib * Diltiazem to 40mg QD * Continue Metoprolol * Continue Eliquis H/o CAD w/ h/o PCI * Aspirin/Eliquis/statin/bb/ccb continued * No chest pain/pressure,/syncope HFpEF * Euvolemic,not hypoxic, lungs ar CTAB * Continue Lasix 20mg QD Fibromyalgia * Continue home SSRI, pain control Anxiety * Home Lorazepam continued Patient prophylaxis: Anticoagulated Disposition: Medical/surgical CODE STATUS: DNR/DNI Diet: Heart healthy, DM2 Admission and Anticipated Discharge Date Admission Date: July 19, 2023 Supervising Physician Co-Signing Physician Notes Medical Student Supervision Note: I was personally present during medical student patient encounter and independently interviewed and examined the patient and verified the lind history and physical, reviewed labs and image studies, discussed the case with Richard Bhakta and agree with the findings and care plan. h/o flu 8 wks ago followed by fatigue, generalized weakness, neck/back/hand joint pain and difficulty ambulation reports h/o RA and remote h/o being on methotrexate which she stopped worrying about it affecting the kidney. vitals noted. comfortable in bed. right wrist and MCP joints with generalized swelling. neck soft, no masses noted. heart - RRR; lungs - CTA. Generalized weakness and joint pain - with h/o being diagnosed with rheumatologic ds -I consulted rheum. spoke to Dr. López and reviewed his recommendations. Will put all the orders for his recommendation and provide dose of steroid. Neck exam and imaging - no masses noted. Dysuria - await urine culture. continue ceftriaxone. ambulatory dysfunction - will get PT/OT eval continue other home meds. Wendi Arguelles is a 68 y/o w/ a h/o RA Anxiety, Fibromyalgia, Paroxysmal AF (s/p pacemaker placement), HFpEF, Urinary Hesitancy, Gross Hematuria, Dysuria a recent h/o flu w/ tonsillitis (11 weeks ago), 1 year h/o L-sided neck mass, who presents for generalized weakness, myalgias/polyarthralgias w/ associated ambulatory dysfunction following her illness 11 weeks ago. No new overnight events. Her condition this AM and early PM is unchanged, she continues to feel her aches and pains that are a new baseline for her since having the flu 11 weeks ago. She continues w/ R>L hand swelling, pain, & weakness. She currently reports no significant difficulty eating or drinking, is eating and drinking well. She's able to sit up in bed by herself with some effort. Review of Systems Review of Systems: ROS negative excepting HPI Physical Exam Physical Exam: GEN: AAO x4, Weak-Appearing, NAD HEENT: NC/AT, PERRLA, EOMI, Good Conjugate Gaze, Nares Patent, MMM, normal conjunctiva, normal dentition. NECK: Supple, No LAD, No Thyromegaly, 7x10cm irregular area of firm induration, mostly non-tender, Limited ROM to the Left RESP: CTAB, No WRR, Normal Respiratory Effort CV: RRR, Normal S1/S2, No M/R/G ABD: Soft, Non-Tender, Non-Distended, No Hepatosplenomegaly, No masses EXT: Swelling/erythema of wrist joints (R>L), MCP joints, & MTP joints, decreased ROM of R arm at elbow, Strength 3/5 b/l, Sensation Intact, Cap Refill <2s, 2+ b/l, No cyanosis NEURO: CN II-XII Intact, Reflexes 2+ b/l & Symmetric (biceps, triceps, patellar) (-) Babinski sign, Sensation intact to light touch DERM: Skin Intact, No Rashes, No Lesions Results & Data Results & Data Vital Signs (Past 12 Hours) Vital Signs Pulse Pulse Resp BP Pulse Ox O2 Del Method 07/20/23 13:00 80 20 132/77 97 Room Air 07/20/23 09:02 82 20 138/80 98 Room Air 07/20/23 07:04 79 07/20/23 06:00 77 21 07/20/23 05:00 78 20 07/20/23 04:00 82 24 Laboratory Results 07/20/23 07/20/23 07/20/23 12:06 07:43 04:35 WBC 6.04 RBC 3.56 L Hgb 9.8 L Hct 31.0 L MCV 87.1 MCH 27.5 MCHC 31.6 L RDW Std Deviation 44.1 RDW Coeff of [place] 13.8 Plt Count 356 MPV 8.9 L Immature Gran % (Auto) 0.2 Neut % (Auto) 62.9 Lymph % (Auto) 25.0 [place] % (Auto) 9.3 Eos % (Auto) 2.3 Baso % (Auto) 0.3 Neut # (Auto) 3.80 Lymph # (Auto) 1.51 [place] # (Auto) 0.56 Eos # (Auto) 0.14 Baso # (Auto) 0.02 Immature Gran # (Auto) 0.01 ESR Sodium 137 Potassium 4.0 Chloride 106 Carbon Dioxide 24 Anion Gap 7 BUN 13 Creatinine 0.81 D Est Cr Clr Drug Dosing 62.3 Est GFR ( Amer) 87.1 Est GFR (Non-Af Amer) 75.2 BUN/Creatinine Ratio 16.0 Glucose 107 H POC Glucose 91 103 H Estimat Average Glucose 117 Hemoglobin A1c 5.7 H Calcium 8.8 Total Creatine Kinase C-Reactive Protein Urine Color Urine Appearance Urine pH Ur Specific [place] Urine Protein Urine Glucose (UA) Urine Ketones Urine Blood Urine Nitrite Urine Bilirubin Urine Urobilinogen Ur Leukocyte Esterase Urine WBC (Auto) Urine RBC (Auto) U Hyaline Cast (Auto) U Epithel Cells (Auto) Urine Bacteria (Auto) Ur Renal Epithelial Cell Urine Mucus Lyme Disease IgG Ab SARS-CoV-2 (PCR) Influenza Type A (PCR) Influenza Type B (PCR) RSV (RT-PCR) 07/19/23 07/19/23 07/19/23 Unknown 21:57 15:41 WBC RBC Hgb Hct MCV MCH MCHC RDW Std Deviation RDW Coeff of [place] Plt Count MPV Immature Gran % (Auto) Neut % (Auto) Lymph % (Auto) [place] % (Auto) Eos % (Auto) Baso % (Auto) Neut # (Auto) Lymph # (Auto) [place] # (Auto) Eos # (Auto) Baso # (Auto) Immature Gran # (Auto) ESR Sodium Potassium Chloride Carbon Dioxide Anion Gap BUN Creatinine Est Cr Clr Drug Dosing Est GFR ( Amer) Est GFR (Non-Af Amer) BUN/Creatinine Ratio Glucose POC Glucose 100 H Estimat Average Glucose Hemoglobin A1c Calcium Total Creatine Kinase C-Reactive Protein Urine Color [place] Urine Appearance Cloudy A Urine pH 5.5 Ur Specific [place] 1.034 H Urine Protein Trace H Urine Glucose (UA) Negative Urine Ketones Trace H Urine Blood Negative Urine Nitrite Positive A Urine Bilirubin 1+ H Urine Urobilinogen Negative Ur Leukocyte Esterase Trace H Urine WBC (Auto) 1-5 Urine RBC (Auto) 5-10 H U Hyaline Cast (Auto) >30 H U Epithel Cells (Auto) >30 H Urine Bacteria (Auto) Negative Ur Renal Epithelial Cell Not Reportable Urine Mucus Present A Lyme Disease IgG Ab SARS-CoV-2 (PCR) NEGATIVE Influenza Type A (PCR) Negative Influenza Type B (PCR) Negative RSV (RT-PCR) Negative 07/19/23 13:05 WBC RBC Hgb Hct MCV MCH MCHC RDW Std Deviation RDW Coeff of [place] Plt Count MPV Immature Gran % (Auto) Neut % (Auto) Lymph % (Auto) [place] % (Auto) Eos % (Auto) Baso % (Auto) Neut # (Auto) Lymph # (Auto) [place] # (Auto) Eos # (Auto) Baso # (Auto) Immature Gran # (Auto) ESR 105 H Sodium Potassium Chloride Carbon Dioxide Anion Gap BUN Creatinine Est Cr Clr Drug Dosing Est GFR ( Amer) Est GFR (Non-Af Amer) BUN/Creatinine Ratio Glucose POC Glucose Estimat Average Glucose Hemoglobin A1c Calcium Total Creatine Kinase 14 L C-Reactive Protein 13.73 H Urine Color Urine Appearance Urine pH Ur Specific [place] Urine Protein Urine Glucose (UA) Urine Ketones Urine Blood Urine Nitrite Urine Bilirubin Urine Urobilinogen Ur Leukocyte Esterase Urine WBC (Auto) Urine RBC (Auto) U Hyaline Cast (Auto) U Epithel Cells (Auto) Urine Bacteria (Auto) Ur Renal Epithelial Cell Urine Mucus Lyme Disease IgG Ab Negative SARS-CoV-2 (PCR) Influenza Type A (PCR) Influenza Type B (PCR) RSV (RT-PCR) Diagnostic Findings MRI OF THE NECK WITH AND WITHOUT CONTRAST CLINICAL HISTORY: Pharyngeal thickening, weight loss. Palpable lump Evaluate for malignancy. COMPARISON STUDY: No previous studies for comparison. TECHNIQUE: Utilizing a 1.5 Juliana magnet and dedicated coil, multiplanar, multiecho imaging of the neck was performed pre and postcontrast administration. Intravenous injection of 6.5 cc of Gadavist was uneventful. FINDINGS: Visualized portions of the intracranial contents are unremarkable. There is no evidence for sinusitis. No significant mastoid fluid is present. No foci of suspicious marrow replacement are present within the cervical spine. The parotid and submandibular glands are unremarkable. The epiglottis is normal. No pathologically enlarged cervical lymph nodes are present. There is a prominent left level 2 node on image 22 of 31. This measures 0.8 x 0.7 cm. This is probably benign. A marker was placed in the skin at site of palpable lump. No corresponding mass or enlarged lymph node is present. No fluid collection within the neck is present. There is no prevertebral edema. No mucosal lesion is identified although exam is mildly compromised by motion artifact. IMPRESSION: 1. No significant abnormality within the neck by MRI. 2. Prominent left level 2 lymph node which is likely benign. A follow-up CT in 6 months to ensure stability is recommended. No pathologically enlarged lymph nodes. 3. No abnormality to correspond to the palpable lump within the left neck. 4. No mucosal lesion identified by MRI although exam mildly compromised by motion artifact. Medications Administered Current Inpatient Medications Acetaminophen (Acetaminophen 325 Mg Tab) 650 mg PO Q4H PRN PRN Reason: Fever/Mild Pain (Pain 1,2,3) Stop: 08/18/23 18:43 Apixaban (Apixaban 5 Mg Tablet) 5 mg PO BID [facility] Stop: 08/18/23 20:59 Last Admin: 07/20/23 08:59 Dose: 5 mg Atorvastatin Calcium (Atorvastatin 40 Mg Tab) 40 mg PO DAILY Y[facility] Stop: 08/19/23 08:59 Last Admin: 07/20/23 08:59 Dose: 40 mg Dextrose (Dextrose 50% 50 Ml Syringe) 25 - 50 ml IV UD PRN; Protocol PRN Reason: Hypoglycemia Protocol Stop: 08/18/23 16:52 Diltiazem HCl (Diltiazem Hcl 240 Mg Capcr) 240 mg PO QAM YURI Stop: 08/19/23 08:59 Last Admin: 07/20/23 08:59 Dose: 240 mg Furosemide (Furosemide 20 Mg Tab) 20 mg PO DAILY [facility] Stop: 08/19/23 08:59 Last Admin: 07/20/23 08:59 Dose: 20 mg Glucagon (Glucagon For Inj 1 Mg Vial) 1 mg SQ UD PRN; Protocol PRN Reason: Hypoglycemia Protocol Stop: 08/18/23 16:52 Glucose (Glucose 10 Tab/Tube) 4 - 8 tab PO UD PRN; Protocol PRN Reason: Hypoglycemia Treatment Stop: 08/18/23 16:52 Glucose (Glucose 40% Gel 15 Gm Tube) 15 - 30 gm PO UD PRN; Protocol PRN Reason: Hypoglycemia Protocol Stop: 08/18/23 16:52 Ceftriaxone Sodium 2,000 mg/ (Dextrose) 50 mls @ 100 mls/hr IV Q24H YURI; Protocol Stop: 07/24/23 18:59 Last Infusion: 07/19/23 20:16 Dose: Infused Loratadine (Loratadine 10 Mg Tab) 10 mg PO DAILY [facility] Stop: 08/19/23 08:59 Last Admin: 07/20/23 08:59 Dose: 10 mg Lorazepam (Lorazepam 0.5 Mg Tab) 0.5 mg PO BID PRN PRN Reason: Anxiety Stop: 08/18/23 18:43 Last Admin: 07/20/23 03:53 Dose: 0.5 mg Metoprolol Succinate (Metoprolol Succ 50mg Ext Rel Tab) 100 mg PO HS [facility]URI Stop: 08/18/23 20:59 Last Admin: 07/19/23 22:28 Dose: 100 mg Miscellaneous (Carbohydrates For Hypoglycemia ) 15 - 30 gm PO UD PRN PRN Reason: Hypoglycemia Protocol Stop: 08/18/23 16:52 Montelukast Sodium (Montelukast Sodium 10 Mg Tablet) 10 mg PO DAILY [facility] Stop: 08/19/23 08:59 Last Admin: 07/20/23 08:59 Dose: 10 mg Nitroglycerin (Nitroglycerin Sl 0.4 Mg/Tab Tab) 0.4 mg SL UD PRN PRN Reason: Chest Pain Stop: 08/18/23 18:43 Oxycodone HCl (Oxycodone Hcl Ir 5 Mg Tab (Immediate Release)) 5 mg PO BID PRN PRN Reason: Pain Stop: 08/02/23 18:43 Pantoprazole Sodium (Pantoprazole 40 Mg Tab) 40 mg PO BID [facility] Stop: 08/18/23 20:59 Last Admin: 07/20/23 08:59 Dose: 40 mg Polyethylene Glycol (Polyethylene (Miralax) 17 Gm Pack) 17 gm PO DAILY PRN PRN Reason: Constipation Stop: 08/18/23 18:43 Potassium Chloride (Potassium Chloride Crtab 20 Meq Tabcr) 20 meq PO DAILY [facility] Stop: 08/19/23 08:59 Last Admin: 07/20/23 08:59 Dose: 20 meq (9) (HFpEF) heart failure with preserved ejection fraction Heart failure chronicity: chronic Qualified Code(s): I50.32 - Chronic diastolic (congestive) heart failure
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
[2023-07-20] MEDS: cefTRIAXone SODIUM 2,000 MG in DEXTROSE 5 % MINI-B 50 ML IV SCH (18:14)
[2023-07-20] MEDS ORDERED: methylPREDNISolone 40 MG in SYRINGE 0 ML IV STA (19:21)
[2023-07-20] MEDS: METOPROLOL SUCC 50MG EXT REL TAB PO SCH (21:00)
[2023-07-21] MEDS: DICLOFENAC SOD 1% GEL 100 GM TUBE EXT SCH ×2 (05:24→12:38)
[2023-07-21 07:35] LABS: Hematocrit (blood only) 33.6 % (37.0-47.0); Hemoglobin 10.7 g/dl (12.0-16.0); Immature Granulocytes # (auto) 0.01 K/uL (0.01-0.20); Immature Granulocytes % (auto) 0.2 %; Lymphocytes # (auto) 0.65 K/uL (1.20-3.40); Lymphocytes % (auto) 12.2 %; Mean Corpuscular Hemoglobin 27.4 pg (25.0-34.0); Mean Corpuscular Hgb Conc 31.8 g/dL (32.0-36.0); Mean Corpuscular Volume 86.2 fL (80.0-100.0); Monocytes # (auto) 0.07 K/uL (0.11-0.59); Monocytes % (auto) 1.3 %; Neutrophils % (auto) 86.3 %; Platelet Count 427 K/uL (130-400); RDW Coefficient of Variation 13.6 % (11.5-14.5); RDW Standard Deviation 42.4 fL (36.4-46.3); White Blood Count 5.33 K/ul (4.8-10.8)
[2023-07-21 07:48] LABS: BUN Creatinine Ratio 23.2 (10-20); Calcium 9.3 mg/dl (8.6-10.3); Creatinine Clr Calc Pharmacy 61.5 ml/min; Est GFR (African American) 85.8 ml/min; Potassium 4.1 mmol/L (3.5-5.1); Uric Acid 4.2 mg/dl (2.6-7.2)
[2023-07-21] MEDS: FUROSEMIDE 20 MG TAB PO SCH (09:32)
[2023-07-21] MEDS: ATORVASTATIN 40 MG TAB PO SCH (09:32)
[2023-07-21] MEDS: LORATADINE 10 MG TAB PO SCH (09:32)
[2023-07-21] MEDS: dilTIAZem HCL 240 MG CAPCR PO SCH (09:32)
[2023-07-21] MEDS: APIXABAN 5 MG TABLET PO SCH (09:32)
[2023-07-21] MEDS: MONTELUKAST SODIUM 10 MG TABLET PO SCH (09:32)
[2023-07-21] MEDS: POTASSIUM CHLORIDE CRTAB 20 MEQ TABCR PO SCH (09:33)
[2023-07-21] MEDS: PANTOprazole 40 MG TAB PO SCH (09:33)
[2023-07-21] MEDS ORDERED: predniSONE 20 MG TAB PO STA (13:54)
--- NOTE | 2023-07-21 15:48 | Discharge Summary ---
Date of Service July 21, 2023 Admission HPI Per Admitting Provider Kindra reports she had Flu A and Flu B 10 weeks ago and has been progressively weaker since then. Thinks she got steroids for 3 days and family doctor gave her an antibiotic x2 course for failure to improve and ?superimposed tonsillitis/pharyngitis, did not take these initially for several weeks. After she started tonsillitis resolved weeks ago, but still feels very tired almost all the time these sense No wheezing, no shortness of breath Legs have been sore since having the floor. 'Legs hurt so bad I just can't walk'. Hands also ache. Feels more tremulous lately, cold lately.. Notes her hands and wrist normally ache due to rheumatoid arthritis but feels worse than normal .. She does note they loosen up a little bit with effort, but they have been more painful and are now limiting her ability to function. Denies fevers, no chills/night sweats but does get intermittently during the day. Wednesday went to [facility] to have the swelling in her legs and arms looked at, got lasix, and was sent home. Lasix improved the swelling, and could walk yesterday but swelling returned today and hurt to walk again so she returned for placement, evaluation of her legs, neck, and placement/PT. Has a history of rheumatoid arthritis and fibromyalgia. She notes that her legs feel sore but are not tender to the touch, although her hips/wrists tend to be sore bilaterally. Her pain is worse when trying to stand and she feels this in both the thighs and bilateral lower extremities. Has a history of a pacemaker. History of OK and PCI x2 stents. Stents were performed at [facility]. Reports [place] said she had heart failure and edema, pt is not aware of if this is true. She was told she had diastolic CHF. Patient reports she had a CT with contrast of her neck at [place], and was referred to have an outpatient MRI for potential cancer. She has not had follow-up for this. She continues to have left neck tenderness and pain with redness and swelling CT-Neck pending, pt reports she is pending an outpatient MRI but has not followed up for this. Pacemaker has to be turned off. Pacemaker was placed at [facility] [address] [facility]. Denies chest pain, chest pressure. No syncope or presyncope. Record REview: [facility] Notes/Labs/Imaging Reviewed from 07/16/23 Assessment: Patient presented with tonsillitis had not take meds for 8-10 weeks and continue to have a sore throat. Has a history of A-fib on Eliquis and diltiazem, hypertension, RA, hyperlipidemia, chronic pain, fibromyalgia Had difficulty swallowing intermittently with 15 pounds weight loss in the preceding 4 to 6 weeks Leukocytosis, elevated proBNP without pulmonary edema. D-dimer is elevated patient obtained a CTA of the chest. This showed no evidence of PE, mild mural thickening of the esophagus with bilateral upper groundglass nodules which patient reports are chronic and not new. CT of the neck showed prominence of the right lateral oropharyngeal wall. Endoscopy/outpatient MRI follow-up with PCP was pending. Patient had not been compliant with Lasix at that time and was discharged to follow-up with PCP and with Lasix Patient reports she is compliant with her Eliquis [facility] internal medicine 07/16/[address] soft tissue neck with contrast: Prominence of right lateral oropharyngeal wall, subcentimeters nonspecific cervical lymph nodes. MRI with contrast recommended to eval for malignancy [facility] internal medicine note reviewed Medical history includes: Osteoarthritis of the right shoulder, supraspinatus tear, influenza, pharyngitis, bronchitis, excessive daytime sleepiness, chronic headaches, rheumatoid arthritis, fibromyalgia, GERD, A-fib paroxysmal on anticoagulation, cardiac pacemaker status, hyperlipidemia Medications: Lorazepam 0.5 mg daily as needed, oxycodoneacetaminophen 5-325 mg 1 tablet twice a day as needed for pain, Protonix 40 daily, montelukast 10 mg daily, Zofran 3 times daily as needed, sertraline 50 mg daily, Zyrtec 10 mg daily, diltiazem to 40 mg extended release daily, famotidine 40 mg at night, piroxicam 10 mg daily, metoprolol succinate 100 mg every night, aspirin 81 mg daily, atorvastatin 40 mg daily, Eliquis twice daily, nitroglycerin as needed. Surgical history: Cardiac cath 01/2016, cholecystectomy, hysterectomy, tubal ligation, less breast lumpectomy Family history: Diabetes in daughter, sister. Breast cancer in sister. Heart disease in father who is at age 60. Pancreatic cancer and adenoid hypertrophy and mother Social: Former smoker, quit 2015 after approximately [id number] history Admission Exam Per Admitting Provider General: A&Ox3. NAD. Cooperative. HEENT: Atraumatic, normocephalic. 2 left neck with area of firmness and tenderness but no erythema/warmth. Circled with surgical pen. No tracheal deviation, uvula midline, no stridor Pulm: CTAB A&P. -wheezes, -rales, -rhonchi. Symmetrical chest rise. No increased work of breathing. No respiratory distress. Cardiac: RRR, -mrg. Radial pulses intact and symmetrical. Abdominal: Nontender, nondistended, soft. BS present. Extremities: Warm, dry. No pitting edema of the lower extremities. Wrist bilaterally, hip bilaterally, ankles bilaterally mildly tender to palpation and on initial active strength movement this improves somewhat on continued strength testing. Sensation intact in hands and feet without Principal Diagnosis weakness, ?RA flare Discharge Exam Constitutional: well appearing, no acute distress HEENT: normocephalic, no conjunctival injection CV: regular rhythm, regular rate, no murmur, no LE edema Respiratory: Clear to auscultation bilaterally. No rhonchi, wheezes, or aircraft designer ckles. No increased work of breathing MSK: no gross deformities noted Skin: warm, dry, no rashes Neuro: alert, oriented, no FND noted Discharge Data Allergies Allergy/AdvReac Type Severity Reaction Status Date / Time amoxicillin Allergy Severe Anaphylaxis Verified 07/19/23 16:40 morphine Allergy Intermediate ITCHY ALL Verified 07/19/23 16:40 OVER Consultations 07/19/23 16:15 ED Decision to Admit Stat 07/20/23 15:29 Consult Rheumatology Routine Ordered Studies 07/20/23 16:51 MR soft tissue neck wo/w con Routine IMPRESSION: 1. No significant abnormality within the neck by MRI. 2. Prominent left level 2 lymph node which is likely benign. A follow-up CT in 6 months to ensure stability is recommended. No pathologically enlarged lymph nodes. 3. No abnormality to correspond to the palpable lump within the left neck. 4. No mucosal lesion identified by MRI although exam mildly compromised by motion artifact. Hospital Course (1) Weakness: (2) Dysuria: (3) Neck pain: (4) Urinary hesitancy: (5) Gross hematuria: (6) Rheumatoid arthritis: (7) Paroxysmal A-fib: (8) Presence of stent in coronary artery in patient with coronary artery disease: (9) (HFpEF) heart failure with preserved ejection fraction: (10) Fibromyalgia: (11) Anxiety: Elizabeth Arguelles is a 68 y/o w/ a h/o RA, fibromyalgia, paroxysmal AF (s/p pacemaker placement), HFpEF, urinary hesitancy, gross hematuria, dysuria a recent h/o flu w/ tonsillitis (11 weeks ago), 1 year h/o L-sided neck mass, who presents for generalized weakness, myalgias/polyarthralgias w/ associated ambulatory dysfunction following her illness 11 weeks ago. Weakness * known h/o RA; ?RA flare up leading to weakness * ESR 105, CRP 13.73 upon admission * Lyme serology neg * Has worsened since flu 11 wks ago * Did not improve on 3-day course of steroids at [facility] several weeks ago * continue pain tx with tylenol, voltaren, and home dose oxycodone PRN * PT/OT recommending home with home PT * rheum consulted during hospitalization: after significant improve with one dose of steroids, recommended taper starting at 40 mg daily x4 days and decreasing by 10 mg each 4 days down to the last 4 days of 5 mg * pt to f/u outpatient with rheum and PCP UTI sx * no bacteria present in her contaminated appearing UA; urine cx neg * covered while hospitalized with ceftriaxone * no further ABX needed upon discharge Neck pain * No leukocytosis, fever, or other symptoms of acute infection * Recent h/o difficulty swallowing * Upper GI balloon dilation performed 3-4 months ago * MRI neg for malignancy, suspect reactive lymph nodes; recommend f/u CT in ~6 mth to ensure improvement Rheumatoid arthritis * significant MCP/MTP swelling this hospitalization * rheum consulted as above Paroxysmal afib * continue home diltiazem 240mg daily, metoprolol 100 mg, eliquis 5 mg BID * orthostatics in the hospital neg H/o CAD with h/o PCI * continue aspirin and statin HFpEF * continue home lasix 20mg daily Fibromyalgia * continue home SSRI, pain control as above Anxiety * continue home lorazepam VTE ppx: eliquis Dispo: home with home PT CODE STATUS: DNR/DNI Diet: Heart healthy, DM2 Total Time Total Time Spent Total Time Spent (In Minutes): as per attending Discharge Plan Discharge Items Patient Disposition: Home - Home Health Services Reason For Visit: WEAKNESS, MYALGIA, NECK PAIN Discharge Diagnosis: weakness, ?RA flare Activity: Per Instructions section Non-emergency contact: Primary Care Provider Call non-emergency contact if: you have any medication questions Follow-up/Referrals: Evaristo Ta MD [Physician] - (f/u ?RA flare. Office will call with a follow up appointment) Argelia De La Cruz M.D. [Primary Care Provider] - 08/10/23 2:30 pm Diet: Heart Healthy Addtl Attending Provider Instructions: You were admitted to the hospital for weakness. Because of your neck pain/swelling, an MRI was obtained of your neck which showed prominent lymph nodes that were not thought to be malignant (cancerous) and were thought to be more reactive (maybe in relation to your recent illness). This should be foll owed up in about 6 months time to make sure the lymph node does not increase in size or change in characteristic. You were also seen by a audio director while you were hospitalized, Dr. Ta. He recommended starting you on steroids as below. You should also follow up with him as an outpatient for further work up of her rheumatoid arthritis. In terms of your weakness and troubling walking, our physical therapy team recommended you continue to participate in physical therapy at home. This will be arranged for you by case management. A discharge summary will be sent to your primary care physician to ensure continuity of care. Please bring this discharge summary with you to your next office appointment so that your provider can review it at that time. Medications: Your medication list has been reviewed and reconciled upon discharge to ensure accuracy and continuity of care. An updated list of all your medications is included with your hospital discharge paperwork. Please review this list closely and make note of any changes to your medications. - You have been started on steroids (prednisone). The taper is as follows: 40 mg (4 tabs) daily for the next 3 days (you received a dose prior to leaving the hospital). 30 mg (3 tabs) daily for 4 days 20 mg (2 tabs) daily for 4 days 10 mg (1 tab) daily for 4 days 5 mg daily for 4 days Then stop - No other medication changes. Follow up appointments: - Make a follow up appointment with your PCP within the next week. It is very important that you follow up with them shortly after discharge from the hospital. - Keep all of your follow up appointments as already scheduled. If you cannot make an appointment, notify your provider. CONTACT YOUR PRIMARY CARE PROVIDER if you experience any of the following: - Difficulty following your treatment plan - Difficulty taking any of your medications CALL 911 OR GO TO THE EMERGENCY DEPARTMENT if you experience any of the following: - Sudden, severe abdominal pain or nausea/vomiting - Severe chest pain or chest pain that radiates to your jaw or arm - Sudden, severe shortness of breath or difficulty breathing Pending Studies at Discharge: No Stand-Alone Forms: My [facility], Smoking Cessation Medications and DC Order Prescriptions: New prednisone 10 mg tablet See Taper PO DAILY Qty: 36 0RF Taper: Taper, Blank 40 mg DAILY for 3 Days 30 mg DAILY for 4 Days 20 mg DAILY for 4 Days 10 mg DAILY for 4 Days Rx Instructions: Begin first dose tomorrow, 07/22 prednisone 5 mg tablet 5 mg PO DAILY Qty: 4 0RF Rx Instructions: This is the lowest dose in your steroid taper Continued atorvastatin 40 mg Tablet 40 mg PO DAILY metoprolol succinate 100 mg Tablet Extended Release 24 Hr 100 mg PO HS diltiazem HCl 240 mg Capsule,Extended Release 24 Hr 240 mg PO QAM oxycodone-acetaminophen 5-325 mg Tablet 1 tab PO BID PRN (Reason: Pain) potassium chloride 20 mEq tablet,ER particles/crystals 20 meq PO DAILY Rx Instructions: STARTED 07/17/23 FOR 7 DAYS. lorazepam 0.5 mg tablet 0.5 mg PO BID PRN (Reason: Anxiety) pantoprazole 40 mg Tablet,Delayed Release (Dr/Ec) 40 mg PO BID nitroglycerin [Nitrostat] 0.4 mg Tablet, Sublingual 0.4 mg sublingual DIRECTED PRN (Reason: Chest Pain) montelukast [Singulair] 10 mg Tablet 10 mg PO DAILY furosemide 20 mg tablet 20 mg PO DAILY Rx Instructions: STARTED 07/17/23 FOR 7 DAYS. loratadine [Claritin] 10 mg Tablet 10 mg PO DAILY Eliquis 5 mg Tablet 5 mg PO BID Discharge Orders: Discharge Order (Routine); Ordered 07/21/23 Ordered By: Mikaela Cornell Admission Data Admit Date/Time: 07/19/23 16:51 Attending Provider: Yudelka Camacho Admit Provider: Denis Gutierrez Primary Care Provider: Argelia De La Cruz Other Providers: Denis Gutierrez; Evaristo Ta; Eduardo Chung [facility] Other Interventions: Discharge Summary Assessment (RN) Last Done: 07/21/23 15:02 Supervising Physician Co-Signing Physician Notes Medical Student Supervision Note: I was personally present during medical student patient encounter and independently interviewed and examined the patient and verified the lind history and physical, reviewed labs and image studies, discussed the case with Richard Bhakta and agree with the findings and care plan. h/o flu 8 wks ago followed by fatigue, generalized weakness, neck/back/hand joint pain and difficulty ambulation reports h/o RA and remote h/o being on methotrexate which she stopped worrying about it affecting the kidney. Started on steroids last night. Reported drastic improvement in symptoms. able to ambulate in the hallways. Dr. Ta confirmed that she was CCP positive per her past records from [facility]. vitals noted. comfortable in bed. right wrist and MCP joints with generalized swelling - less pain. neck soft, no masses noted. heart - RRR; lungs - CTA. Generalized weakness and joint pain - h/o RA and not on meds. -Rheum consulted. Dr. Ta - Drastic improvement with dose of IV steroid. Home on steroid taper. -pending labs for rheum work up to be followed Neck exam and imaging - no masses noted. Likely SCM spasm from radicular pain. further outpatient f/u. Resident Activity Tracking Resident Involvement: Resident Care Provided Care Provided: Adult [facility]
[2023-07-22 12:32] LABS: Cyclic Citrullinated Pep IgG 84 UNITS; Rheumatoid Factor 142 IU/mL (<14)
== END 2023-07-21 16:26 | disposition home health service (06) | DRG 690 ==
LOC: ED 12:34 → EDINP 16:51 → SUATTDRO 16:51 → INTOOBSV 16:51 → EDINP 07-20 14:55 → 3W 07-20 16:14